=== PATIENT | male | born 1980 | race Caucasian/White ===

== ENCOUNTER 2020-08-11 18:13 | Emergency (ER) | payer OTHER, SELFPAY ==
[2020-08-11 18:21] VITALS: BP 136/76; PULSE 69; RESP 14; TEMP 36.6; O2SAT 100
--- NOTE | 2020-08-11 18:23 | ED.BACK ---
HPI - Back Pain/Injury General Chief Complaint: Back Pain/Injury Stated Complaint: Lower back Pain Time Seen by Provider: 08/11/20 18:23 Source: patient and RN notes reviewed History of Present Illness HPI Narrative: Patient is a 39-year-old male who presents the urgent care with complaints of low back strain. Patient states that he was squatting at the gym today and felt his low back give out. Patient states that since the incident he has been unable to stand up straight, walk comfortably, or bend or flex at the waist. Patient states that he has taken ibuprofen without much improvement. 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 No other acute complaints. Patient denies radiation of pain. No acute distress noted. Patient aware of the plan of care. Some parts of this dictation were generated by voice recognition software and may contain typographical and/or grammatical inaccuracies. Related Data Home Medications Medication Instructions Recorded Confirmed bupropion HCl 450 mg PO DAILY 08/11/20 08/11/20 fluoxetine 60 mg PO DAILY 08/11/20 08/11/20 Allergies Allergy/AdvReac Type Severity Reaction Status Date / Time Penicillins Allergy Unknown Verified 08/11/20 18:27 Review of Systems Review of Systems: Narrative: CONSTITUTIONAL: Denies fever, chills, or sweats. EYES: Denies visual changes, redness, or discharge. ENT: Denies rhinorrhea, congestion, sore throat, or otalgia. CARDIOVASCULAR: Denies chest pain, palpitations, or edema. RESPIRATORY: Denies cough or dyspnea. GASTROINTESTINAL: Denies abdominal pain, nausea, vomiting, or diarrhea. GENITOURINARY: Denies dysuria or hematuria. SKIN: Denies rash or itching. MUSCULOSKELETAL: Reports of low back pain NEUROLOGIC: Denies headache, numbness, or weakness. All other systems reviewed are negative, except as documented in HPI. PMFSH Comments At the time of my signature, I reviewed and agree with the nursing past medical, surgical, social, and family history. There is no relevant family history pertinent to the patient complaint. Exam Narrative: Exam Narrative: GENERAL: This is a well-nourished, well-developed patient, in no apparent distress. HEAD: normocephalic, atraumatic. EYES: PERRL. Sclera clear/white. Vision is grossly intact. EARS: External ears normal NOSE: External nose normal with no obvious nasal discharge, nares without redness, no rhinorrhea. THROAT: Mucous membranes moist, posterior pharynx clear. NECK: Neck supple SKIN: warm, intact with no suspicious lesions or rash, good texture and turgor. NEURO: awake, alert, and oriented to person, place and time. There were no obvious focal neurologic abnormalities. EXTREMITIES: No clubbing, cyanosis, or edema. BACK: Mild diffuse lumbar tenderness exacerbated with bending at the waist, sit to stand, ambulation Course Vital Signs Vital signs: Vital Signs Temperature 97.9 F 08/11/20 18:21 Pulse Rate 69 08/11/20 18:21 Respiratory Rate 14 08/11/20 18:21 Blood Pressure 136/76 08/11/20 18:21 Pulse Oximetry 100 08/11/20 18:21 Temperature 97.9 F 08/11/20 18:28 Pulse Rate 69 08/11/20 18:28 Respiratory Rate 14 08/11/20 18:28 Blood Pressure 136/76 08/11/20 18:28 Pulse Oximetry 100 08/11/20 18:28 Reviewed MDM - Back Pain/Injury MDM Narrative Medical decision making narrative: Advised patient to complete the steroid regimen as prescribed. Use ibuprofen as needed for pain. Take Flexeril prior to bedtime and as needed. May take Flexeril 3 times a day however it will make you drowsy and I would not recommend driving or operating heavy machinery while on the medication. Do not take the Flexeril prior to work. Be sure to eat and drink with the ibuprofen. May use a heating pad or an ice pack however do not sleep with a heating pad or ice pack applied to your back. It will increase muscle stiffness. If you develop any
[2020-08-11 18:28] VITALS: BP 136/76; PULSE 69; RESP 14; TEMP 36.6; O2SAT 100
== END 2020-08-11 18:37 | disposition home or self-care (01) ==
PROVIDERS: Emergency Provider Nurse Practitioner Family
DX: S39.012A Strain of muscle, fascia and tendon of lower back, initial encounter (principal); X50.9XXA Other and unspecified overexertion or strenuous movements or postures, initial encounter; F41.9 Anxiety disorder, unspecified; F32.9 Major depressive disorder, single episode, unspecified
CPT/HCPCS: 99213; G0463